=== PATIENT | male | born 1995 | race Caucasian/White ===

== ENCOUNTER 2020-10-07 16:38 | Emergency (ER) | payer OTHER ==
[~2020-10-07] VITALS: Ht 188 cm; Wt 136.1 kg
[2020-10-07 16:42] VITALS: BP 142/67
[2020-10-07] MEDS ORDERED: KETOROLAC 30 MG/ML VIAL IM ONE (17:05)
[2020-10-07] MEDS ORDERED: IBUP-2213 PO (17:43)
[2020-10-07] MEDS ORDERED: CEPH500C16 PO (17:43)
[2020-10-07] MEDS ORDERED: cefTRIAXone 1,000 MG in LIDOCAINE MPF 1% 2.1 ML IM ONE (17:50)
[2020-10-07] MEDS ORDERED: LIDOCAINE MPF 1% 5 ML ONE (17:52)
[2020-10-07] MEDS ORDERED: cefTRIAXone 1,000 MG VIAL ONE (17:52)
[2020-10-07 18:09] VITALS: BP 142/67
== END 2020-10-07 18:09 | disposition home or self-care (01) ==
LOC: MED 16:38
DX: L03.114 Cellulitis of left upper limb (principal); R03.0 Elevated blood-pressure reading, without diagnosis of hypertension; Z79.899 Other long term (current) drug therapy
CPT/HCPCS: 73100; 73140; 96372; 99284; J0696; J1885; J2001

== ENCOUNTER 2020-10-10 14:58 | Emergency (ER) | payer OTHER ==
[~2020-10-10] VITALS: Ht 200.7 cm; Wt 136.1 kg
[~2020-10-10 14:58] MED LIST: CEPH500C16 PO; IBUP-2213 PO
[2020-10-10 15:03] VITALS: BP 136/63
[2020-10-10 16:22] VITALS: BP 136/63
== END 2020-10-10 16:23 | disposition home or self-care (01) ==
LOC: MED 14:58
DX: M79.81 Nontraumatic hematoma of soft tissue (principal); M79.644 Pain in right finger(s); Z79.899 Other long term (current) drug therapy
CPT/HCPCS: 10140; 26010; 99282; 99284

== ENCOUNTER 2021-02-18 22:25 | Emergency (ER) | payer OTHER ==
[~2021-02-18] VITALS: Ht 190.5 cm; Wt 136.1 kg
[2021-02-18 22:33] VITALS: BP 178/101
--- NOTE | 2021-02-18 22:36 | NUR ---
TO LOBBY FOLLOWING TRIAGE
[2021-02-18] MEDS ORDERED: KETOROLAC 30 MG/ML VIAL IM ONE (22:40)
--- NOTE | 2021-02-18 23:15 | NUR ---
PT RETURNED FROM XRAY AND BACK IN LOBBY VIA W.C.
[2021-02-19 00:17] VITALS: BP 107/57
[2021-02-19] MEDS ORDERED: HYDROcodone/APAP 5/325 MG 1 TAB TAB PO ONE (01:45)
[2021-02-19] MEDS ORDERED: IBUP200C97 PO (01:50)
[2021-02-19] MEDS ORDERED: CYCL-711 PO (01:50)
[2021-02-19] MEDS ORDERED: LID5T TP (01:50)
--- NOTE | 2021-02-19 01:56 | NUR ---
Patient discharged with v/s stable. Written and verbal after care instructions given and explained. Patient alert, oriented and verbalized understanding of instructions. Ambulatory with steady gait. All questions addressed prior to discharge. ID band removed. Patient advised to follow up with PMD. Rx of FLEXERIL, MOTRIN AND LIDODERM 5% PATCH given. Patient educated on indication of medication including possible reaction and side effects. Opportunity to ask questions provided and answered.
== END 2021-02-19 01:56 | disposition home or self-care (01) ==
LOC: MED 22:27
DX: M54.30 Sciatica, unspecified side (principal)
CPT/HCPCS: 72110; 96372; 99283; J1885

== ENCOUNTER 2023-04-25 19:20 | Emergency (ER) | payer OTHER ==
[~2023-04-25] VITALS: Ht 188 cm; Wt 136.1 kg
[~2023-04-25 19:20] MED LIST changes: +CYCL-711 PO; +IBUP200C97 PO; +LID5T TP
[2023-04-25 19:22] VITALS: BP 146/97; PULSE 120; RESP 16; TEMP 97.6; O2SAT 98
[2023-04-25 21:20] VITALS: BP 146/97; PULSE 120; RESP 16; TEMP 97.6; O2SAT 98
== END 2023-04-25 21:15 | disposition left against medical advice (07) ==
LOC: MED 19:20
DX: J02.9 Acute pharyngitis, unspecified (principal); R06.02 Shortness of breath; Z53.21 Procedure and treatment not carried out due to patient leaving prior to being seen by health care provider
CPT/HCPCS: 99281

== ENCOUNTER 2024-01-11 19:21 | Emergency (ER) | payer OTHER ==
[~2024-01-11] VITALS: Ht 172.7 cm; Wt 133.8 kg
[2024-01-11 19:29] VITALS: BP 126/75; PULSE 92; RESP 16; TEMP 97.8; O2SAT 100
[2024-01-11 19:42] VITALS: BP 126/75; PULSE 92; RESP 16; TEMP 97.8; O2SAT 100
[2024-01-11] MEDS: IBUPROFEN 600 MG TAB PO ONE (19:42)
== END 2024-01-11 19:42 ==
LOC: MED 19:21
DX: M79.10 Myalgia, unspecified site (principal); Z02.89 Encounter for other administrative examinations; Z79.1 Long term (current) use of non-steroidal anti-inflammatories (NSAID); Z79.2 Long term (current) use of antibiotics; Z79.899 Other long term (current) drug therapy; V89.2XXA Person injured in unspecified motor-vehicle accident, traffic, initial encounter; Y93.89 Activity, other specified; Y92.89 Other specified places as the place of occurrence of the external cause; Y99.8 Other external cause status
CPT/HCPCS: 99283

== ENCOUNTER 2024-02-19 17:25 | Emergency (ER) | payer OTHER ==
[~2024-02-19] VITALS: Ht 190.5 cm; Wt 153.0 kg
[2024-02-19 17:49] VITALS: BP 130/95; PULSE 93; RESP 18; TEMP 97.4; O2SAT 98
== END 2024-02-19 18:46 | disposition home or self-care (01) ==
LOC: MED 17:25
DX: S91.331A Puncture wound without foreign body, right foot, initial encounter (principal); Z79.899 Other long term (current) drug therapy; W45.0XXA Nail entering through skin, initial encounter; Y92.89 Other specified places as the place of occurrence of the external cause; Y93.89 Activity, other specified; Y99.8 Other external cause status
CPT/HCPCS: 90471; 90715; 99283